=== PATIENT | male | born 1995 | race Asian ===

== ENCOUNTER 2016-11-26 11:57 | Emergency (ER) | payer SELFPAY ==
[2016-11-26 12:48] VITALS: BP 129/70
--- NOTE | 2016-11-26 13:03 | UC ---
Respiratory Complaint HPI - HPI Summary HPI Summary: worsening URI sx and fever over the past 24 hours - History of Current Complaint Chief Complaint: UCGeneralIllness Stated Complaint: COUGH,FEVER Time Seen by Provider: 11/26/16 12:59 Hx Obtained From: Patient Onset/Duration: Sudden Onset, Lasting Days - 1, Still Present Timing: Constant Severity Initially: Moderate Severity Currently: Moderate Pain Intensity: 6 Pain Scale Used: 0-10 Numeric Character: Cough: Nonproductive Aggravating Factors: Nothing Alleviating Factors: OTC Meds Associated Signs And Symptoms: Positive: Fever, Chills, URI, Nasal Congestion, Sinus Discomfort - Allergies/Home Medications Allergies/Adverse Reactions: Allergies Allergy/AdvReac Type Severity Reaction Status Date / Time No Known Allergies Allergy Verified 03/28/16 10:28 PMH/Surg Hx/FS Hx/Imm Hx Previously Healthy: Yes Endocrine History Of: Denies: Diabetes, Thyroid Disease Cardiovascular History Of: Denies: Cardiac Disorders, Hypertension Respiratory History Of: Denies: COPD, Asthma GI/ History Of: Denies: Ulcer - Surgical History Surgical History: Yes Surgery Procedure, Year, and Place: MYRANDA broken leg repair- External fixator. osteomylitis-wound vac - Family History Known Family History: Positive: None, Diabetes - Social History Occupation: Student Lives: With Family Alcohol Use: Weekly Alcohol Amount: Once per week Substance Use Type: None Smoking Status (MU): Never Smoked Tobacco Have You Smoked in the Last Year: No - Immunization History Most Recent Tetanus Shot: UTD Vaccination Up to Date: Yes Review of Systems Constitutional: Fever, Chills, Fatigue Skin: Negative Eyes: Negative ENT: Sore Throat Respiratory: Cough Cardiovascular: Negative Gastrointestinal: Negative Genitourinary: Negative Motor: Negative Neurovascular: Negative Musculoskeletal: Arthralgia, Myalgia Neurological: Negative Psychological: Negative All Other Systems Reviewed And Are Negative: Yes Physical Exam Triage Information Reviewed: Yes Appearance: No Pain Distress, Well-Nourished, Ill-Appearing - mild Vital Signs: Initial Vital Signs Temp 101.1 F 11/26/16 12:41 Pulse 108 11/26/16 12:41 Resp 18 11/26/16 12:41 BP 129/70 11/26/16 12:41 Pulse Ox 97 11/26/16 12:41 Vital Signs Reviewed: Yes Eye Exam: Normal Eyes: Positive: Conjunctiva Clear ENT Exam: Normal ENT: Positive: Normal ENT inspection, Hearing grossly normal, Pharyngeal erythema, TMs normal. Negative: Nasal congestion, Nasal drainage, Tonsillar swelling, Tonsillar exudate, Trismus, Muffled/hoarse voice Dental Exam: Normal Neck exam: Normal Neck: Positive: Supple, Nontender, No Lymphadenopathy Respiratory Exam: Normal Respiratory: Positive: Chest non-tender, Lungs clear, Normal breath sounds, No respiratory distress, No accessory muscle use Cardiovascular Exam: Normal Cardiovascular: Positive: No Murmur, Pulses Normal, Brisk Capillary Refill, Tachycardia Musculoskeletal Exam: Normal Musculoskeletal: Positive: Strength Intact, ROM Intact, No Edema Neurological Exam: Normal Neurological: Positive: Alert, Muscle Tone Normal Psychological Exam: Normal Skin Exam: Normal UC Diagnostic Evaluation - Laboratory O2 Sat by Pulse Oximetry: 97 Diagnostic Studies Comment: Influenza A (+) Respiratory Course/Dx - Course Course Of Treatment: Tamiflu, Ibuprofen, tylenol, increase fluids, follow with [facility] recheck prn - Differential Dx/Diagnosis Differential Diagnosis/HQI/PQRI: Influenza, Laryngitis, Sinusitis Provider Diagnoses: Influenza A Discharge - Discharge Plan Condition: Stable Disposition: HOME Prescriptions: Oseltamivir Phosphate [Tamiflu] 75 mg PO BID #10 cap Patient Education Materials: Oseltamivir (By mouth), Influenza (ED) Forms: *School Release Referrals: [facility] [Outside] - If Needed No Primary Care Phys,NOPCP [Primary Care Provider] -
[2016-11-26] MEDS: Ibuprofen TAB* 600 MG PO ONE (13:16)
== END 2016-11-26 13:38 | disposition home or self-care (01) ==
LOC: UCEAST 11:57
DX: J10.1 Influenza due to other identified influenza virus with other respiratory manifestations (principal)
CPT/HCPCS: 87502; 87651; 99212; A9270-GY; G0463

== ENCOUNTER 2017-08-15 09:05 | Emergency (ER) | payer BC ==
[2017-08-15 09:46] VITALS: BP 127/70
--- NOTE | 2017-08-15 10:36 | UC ---
Respiratory Complaint HPI - HPI Summary HPI Summary: 2 DAYS OF COUGH, CONGESTION, SCRATCHY THROAT. NO EAR PAIN, FEVER, N/V/D. NO PAIN WITH SWALLOWING. NO BODY ACHES. [facility]. - History of Current Complaint Chief Complaint: UCRespiratory Stated Complaint: COUGH RESP ISSUE Time Seen by Provider: 08/15/17 10:11 Hx Obtained From: Patient Onset/Duration: Gradual Onset, Lasting Days, Still Present Timing: Constant Severity Initially: Moderate Severity Currently: Moderate Pain Intensity: 0 Pain Scale Used: 0-10 Numeric Character: Cough: Productive Aggravating Factors: Nothing Alleviating Factors: Nothing Associated Signs And Symptoms: Positive: URI, Nasal Congestion. Negative: Dyspnea, Fever, Chills, Pleuritic Chest Pain, Wheezing, Hemoptysis, Dizziness, Calf Pain, Calf Swelling, Edema, Hoarseness - Allergies/Home Medications Allergies/Adverse Reactions: Allergies Allergy/AdvReac Type Severity Reaction Status Date / Time No Known Allergies Allergy Verified 08/15/17 09:43 PMH/Surg Hx/FS Hx/Imm Hx Previously Healthy: Yes - Surgical History Surgical History: Yes Surgery Procedure, Year, and Place: MYRANDA broken leg repair- External fixator. osteomylitis-wound vac - Family History Known Family History: Positive: Hypertension, Diabetes - Social History Alcohol Use: Weekly Alcohol Amount: Once per week Substance Use Type: None Smoking Status (MU): Never Smoked Tobacco Have You Smoked in the Last Year: No - Immunization History Most Recent Tetanus Shot: UTD Vaccination Up to Date: Yes Review of Systems Constitutional: Negative ENT: Sore Throat, Nasal Discharge Respiratory: Cough Cardiovascular: Negative Gastrointestinal: Negative All Other Systems Reviewed And Are Negative: Yes Physical Exam Triage Information Reviewed: Yes Appearance: Well-Appearing, No Pain Distress, Well-Nourished Vital Signs: Initial Vital Signs Temp 97.8 F 08/15/17 09:43 Pulse 87 08/15/17 09:43 Resp 16 08/15/17 09:43 BP 127/70 08/15/17 09:43 Pulse Ox 100 08/15/17 09:43 Vital Signs Reviewed: Yes Eyes: Positive: Conjunctiva Clear ENT: Positive: Hearing grossly normal, Pharynx normal, TMs normal Neck: Positive: Supple, Nontender, No Lymphadenopathy Respiratory Exam: Normal Cardiovascular Exam: Normal Abdomen Description: Positive: Soft Musculoskeletal: Positive: No Edema Neurological: Positive: Alert Psychological: Positive: Age Appropriate Behavior Skin: Negative: rashes UC Diagnostic Evaluation - Laboratory O2 Sat by Pulse Oximetry: 100 Respiratory Course/Dx - Differential Dx/Diagnosis Provider Diagnoses: ACUTE URI Discharge - Discharge Plan Condition: Stable Disposition: HOME Patient Education Materials: Upper Respiratory Infection (ED) Forms: *School Release Additional Instructions: ACUTE UPPER RESPIRATORY INFECTION The common cold is a benign self-limited syndrome representing a group of diseases caused by members of several families of viruses. It is the most frequent acute illness in the [place] and throughout the industrialized world. The term "common cold" refers to a mild upper respiratory viral infection involving, to variable degrees, nasal congestion and discharge ( rhinorrhea), sneezing, sore throat, cough, low-grade fever, headache, and malaise. Symptomatic therapy remains the mainstay of common cold treatment. In the absence of convincing evidence of a secondary bacterial infection, antibiotics are not effective in the treatment of the common cold and should not be prescribed. Be advised that the usual course and duration of illness is up to one and a half weeks for patients with a cold, but can last slightly longer; symptoms usually persist longer in smokers. YOUR SYMPTOMS ARE LIKELY VIRALLY MEDIATED AND SHOULD RESOLVE ON THEIR OWN WITH TIME. REST, HYDRATE, OTC MEDS NEEDED. SEEK FOLLOW-UP HERE OR WITH [facility] IF YOU ARE NOT IMPROVING OVER THE NEXT 1-2 WEEKS. TRY OTC AFRIN FOR NASAL CONGESTION. OKAY TO USE 2-3 SPRAYS IN EACH NOSTRIL UP TO 2 TIMES DAILY. DO NOT USE FOR MORE THAN 3-4 CONSECUTIVE DAYS TO PREVENT DEVELOPING REBOUND CONGESTION.
== END 2017-08-15 10:49 | disposition home or self-care (01) ==
LOC: UCEAST 09:05
DX: J06.9 Acute upper respiratory infection, unspecified (principal)
CPT/HCPCS: 99211; G0463

== ENCOUNTER 2017-10-09 11:37 | Emergency (ER) | payer BC ==
--- NOTE | 2017-10-09 15:03 | UC ---
Viola Hodge Thomas, scribed for Brandee Gastelum MD on 10/09/17 at 1455 . Throat Pain/Nasal Paulo HPI - HPI Summary HPI Summary: The patient is a 21 year old male presenting to Urgent Care complaining of a sore throat and chills for the last three days. The sore throat is rated 5/10. At urgent care, the patient has a fever at 100.7. Yesterday, the patient took Motrin. Patient additionally complains of generalized malaise. The patient has been able to drink but he has not been eating. Patient denies myalgia, cough, abd pain, nausea, diarrhea, sinus pain, ear pain, and postnasal drip. He is unsure whether or not he got the flu shot this year. He denies recent sick contacts. Patients medication reviewed this visit. - History of Current Complaint Chief Complaint: UCRespiratory Stated Complaint: SORE THROAT Time Seen by Provider: 10/09/17 14:52 Hx Obtained From: Patient Onset/Duration: Lasting Days - 3, Still Present Severity: Moderate Pain Intensity: 5 Pain Scale Used: 0-10 Numeric Cough: None Associated Signs & Symptoms: Positive: Fever, Other - Chills, sore throat, generalized malaise Related History: Other (Noted In Comments) - Unsure whether or not he got the flu shot this year - Allergies/Home Medications Allergies/Adverse Reactions: Allergies Allergy/AdvReac Type Severity Reaction Status Date / Time No Known Allergies Allergy Verified 10/09/17 12:29 PMH/Surg Hx/FS Hx/Imm Hx Previously Healthy: Yes - NEGATIVE: asthma, Type I DM - Surgical History Surgical History: Yes Surgery Procedure, Year, and Place: MYRANDA broken leg repair- External fixator. osteomylitis-wound vac - Family History Known Family History: Positive: Hypertension, Diabetes - Social History Alcohol Use: Weekly Alcohol Amount: Once per week Substance Use Type: None Smoking Status (MU): Never Smoked Tobacco Have You Smoked in the Last Year: No - Immunization History Most Recent Tetanus Shot: UTD Vaccination Up to Date: Yes Review of Systems Constitutional: Fever, Chills, Other - Generalized malaise ENT: Sore Throat Is Patient Immunocompromised?: No All Other Systems Reviewed And Are Negative: Yes Physical Exam Triage Information Reviewed: Yes Appearance: No Pain Distress - tired appearing, congested, Well-Nourished Vital Signs: Initial Vital Signs Temp 100.7 F 10/09/17 12:29 Pulse 104 10/09/17 12:29 Resp 22 10/09/17 12:29 BP 120/75 10/09/17 12:29 Pulse Ox 100 10/09/17 12:29 Vital Signs Reviewed: Yes Eye Exam: Normal Eyes: Positive: Conjunctiva Clear ENT Exam: Normal ENT: Positive: Hearing grossly normal, Pharyngeal erythema, Nasal congestion, Other - fluid left TM no erythema turbinates inflammed and boggy + PND Dental Exam: Normal Neck exam: Normal Neck: Positive: Supple, Nontender Respiratory Exam: Normal Respiratory: Positive: Chest non-tender, Lungs clear, Normal breath sounds, No respiratory distress, No accessory muscle use Cardiovascular Exam: Normal Cardiovascular: Positive: RRR, No Murmur Abdominal Exam: Normal Abdomen Description: Positive: Nontender, No Organomegaly Musculoskeletal Exam: Normal Neurological Exam: Normal Psychological Exam: Normal Skin Exam: Normal Throat Pain/Nasal Course/Dx - Course Assessment/Plan: Patient presents with fever, sore throat, and chills. Rapid Strep is negative. Influenza A and B are negative. He was given acetaminophen 650 mg PO at urgent care. viral syndrome - URI. hydrate. secretion precaution. motrin/apap. flonase. hydr - Differential Dx/Diagnosis Provider Diagnoses: URI. viral syndrome Discharge - Discharge Plan Condition: Stable Disposition: HOME Prescriptions: Fluticasone NASAL SPRAY 50MCG* [Flonase NASAL SPRAY 50MCG*] 2 spray BOTH NARES DAILY #1 btl Patient Education Materials: Pharyngitis (ED), Viral Syndrome (ED) Forms: *Gen. Provider Communication, *Work Release Referrals: No Primary Care Phys,NOPCP [Primary Care Provider] - Additional Instructions: - Stay well hydrated. Drink plenty of non-alcoholic, non-caffinated beverages - alternate ibuprofen (Advil, Motrin) and tylenol every 3hours for pain and fever - Okay to gargle and spit every 4 hours as needed for pain - Stay well hydrated - frequent sips of cold fluids will be soothing to your throat (popsicles, jello, ice cream, ice water). Avoid excess caffeine until your symptoms have resolved. - Do not share eating, drinking utensils. Throw out your toothbrush when your symptoms resolved - Use nasal spray and instructed - Contact your doctor to arrange a follow-up appointment. Contact your doctor, return here or go to the emergency department as needed The documentation as recorded by the Viola castaneda Thomas accurately reflects the service I personally performed and the decisions made by me, Brandee Gastelum MD.
[2017-10-09 15:10] VITALS: BP 101/70
[2017-10-09] MEDS: Acetaminophen TAB* 325 MG PO ONE (15:13)
== END 2017-10-09 16:16 | disposition home or self-care (01) ==
LOC: UCEAST 11:37
DX: J06.9 Acute upper respiratory infection, unspecified (principal); B34.9 Viral infection, unspecified
CPT/HCPCS: 87502; 87651; 99212; A9270-GY; G0463

== ENCOUNTER → 2018-08-23 01:28 | Emergency (ER) | payer SELFPAY ==
[~2018-08-23 01:28] MED LIST: Amoxicillin/Clavulanate TAB* 875 MG PO ONE
--- NOTE | 2018-08-23 02:37 | ED ---
Throat Pain/Nasal Congestion - HPI Summary HPI Summary: The pt is a 22 y/o male presenting to [facility] c/o tonsilar bleeding since 0000 hrs. He went to bed at 23:00hrs. He was awoken by a warm sensation in his throat at 0000 hrs revealing the bleeding that continued for 30-40 minutes. He notes lightheadedness, posterior throat erythema, mild cough, and nausea but denies sore throat, dysphagia, fever, chills, diarrhea, vomiting, and epistaxis. He did not eat any new food recently. - History of Current Complaint Chief Complaint: EDThroatPain Time Seen by Provider: 08/23/18 02:32 Hx Obtained From: Patient Onset/Duration: Sudden Onset - 0000 hrs, Still Present Severity: Moderate Associated Signs And Symptoms: Negative: Dysphagia Related History: Other (Noted In Comments) - Hx of strep throat - Allergies/Home Medications Allergies/Adverse Reactions: Allergies Allergy/AdvReac Type Severity Reaction Status Date / Time No Known Allergies Allergy Verified 08/23/18 01:38 PMH/Surg Hx/FS Hx/Imm Hx Previously Healthy: No Endocrine/Hematology History: Denies: Hx Diabetes, Hx Thyroid Disease Cardiovascular History: Denies: Hx Hypertension Respiratory History: Denies: Hx Asthma, Hx Chronic Obstructive Pulmonary Disease (COPD) GI History: Denies: Hx Ulcer EENT History: Reports: Other - Strep throat - Cancer History Cancer Type, Location and Year: None reported - Surgical History Surgery Procedure, Year, and Place: MYRANDA broken leg repair- External fixator. osteomylitis-wound vac Infectious Disease History: No Infectious Disease History: Denies: Hx Clostridium Difficile, Hx Hepatitis, Hx Human Immunodeficiency Virus (HIV), Hx of Known/Suspected MRSA, Hx Shingles, Hx Tuberculosis, Hx Known/ Suspected VRE, Hx Known/Suspected VRSA, History Other Infectious Disease, Traveled Outside the [place] in Last 30 Days - Family History Known Family History: Positive: Hypertension, Diabetes - Social History Occupation: Student Lives: With Family Alcohol Use: Weekly Alcohol Amount: Once per week Substance Use Type: Reports: None Smoking Status (MU): Never Smoked Tobacco Have You Smoked in the Last Year: No Review of Systems Constitutional: Other - Positive: Lightheadedness ENT: Negative - Dysphagia , Other - Positive: Tonsilar bleeding, posterior throat ertythema Negative: Epistaxis, Sore Throat Positive: Cough Positive: Nausea. Negative: Vomiting, Diarrhea All Other Systems Reviewed And Are Negative: Yes Physical Exam - Summary Physical Exam Summary: GENERAL: Patient is a well developed and nourished M who is lying comfortable in the stretcher. Patient is not in any acute respiratory distress. HEAD AND FACE: Normocephalic EYES: PERRLA, EOMI x 2. EARS: Hearing grossly intact. MOUTH: Small laceration on the L tonsil without active bleeding NECK: Supple, trachea is midline, no adenopathy, no JVD, no carotid bruit. CHEST: Symmetric, no tenderness at palpation LUNGS: Clear to auscultation bilaterally. No wheezing or crackles. CVS: Regular rate and rhythm, S1 and S2 present, no murmurs or gallops appreciated. ABDOMEN: Soft, non-tender. Bowel sounds are normal. No abdominal abnormal pulsations. EXTREMITIES: Full ROM in all major joints, no edema, no cyanosis or clubbing. NEURO: Alert and oriented x 3. No acute neurological deficits. Speech is normal and follows commands. SKIN: Dry and warm Triage Information Reviewed: Yes Vital Signs On Initial Exam: Initial Vitals Temp Pulse Resp BP Pulse Ox 97.1 F 96 16 116/73 98 08/23/18 01:36 08/23/18 01:36 08/23/18 01:36 08/23/18 01:36 08/23/18 01:36 Vital Signs Reviewed: Yes Diagnostics - Vital Signs Vital Signs Temp Pulse Resp BP Pulse Ox 08/23/18 01:36 97.1 F 96 16 116/73 98 - Laboratory Lab Statement: Any lab studies that have been ordered have been reviewed, and results considered in the medical decision making process. - Radiology CXR Radiology Interpretation Completed By: ED Physician - IMPRESSION: No acute process EENT Course/Dx - Course Course Of Treatment: A 22 year-old M presents to the ED with a CC of tonsillar bleeding since 0000 hrs. He went to bed at 23:00hrs. He was awoken by a warm sensation in his throat at 0000 hrs revealing the oral bloody discharge that continued for 30-40 minutes. He notes lightheadedness, posterior throat erythema , mild cough, and nausea but denies sore throat, dysphagia, fever, chills, diarrhea, vomiting, and epistaxis. A physical exam revealed a small laceration on the L tonsil without active bleeding. A CXR is unremarkable. In the ED course , pt was given Amoxicillin 875 mg PO which improved the symptoms. Patient will be discharged with a final Dx of strep throat. I discussed results with patient and he agrees with this plan. He is hemodynamically stable upon discharge. Strict return precautions given and he will otherwise follow up with his PCP. Allergies noted. - Diagnoses Provider Diagnoses: Strep throat Discharge - Sign-Out/Discharge Documenting (check all that apply): Patient Departure - DC - Discharge Plan Condition: Stable Disposition: HOME Prescriptions: Amoxicillin/Clavulanate TAB* [Augmentin TAB 875*] 875 mg PO BID #20 tab Patient Education Materials: Strep Throat (ED) Referrals: [facility] [Outside] Additional Instructions: Follow up with PCP in 1-3 days. Return to ED for any new or worsening symptoms - Billing Disposition and Condition Condition: STABLE Disposition: Home - Attestation Statements Document Initiated by Scribe: Yes Documenting Scribe: Gissel Deluna Provider For Whom Teresa is Documenting (Include Credential): Dr. Christian Haque MD Scribe Attestation: Gissel Hodge , scribed for Dr. Christian Haque MD on 08/23/18 at 0547. Scribe Documentation Reviewed: Yes Provider Attestation: The documentation as recorded by the Gissel castaneda accurately reflects the service I personally performed and the decisions made by , Dr. Christian Haque MD
[2018-08-23 03:50] VITALS: BP 111/81
--- NOTE | 2018-08-23 08:08 | RAD ---
HISTORY: hemoptysis COMPARISONS: September 26, 2003 VIEWS: 4: Frontal dual-energy and lateral views of the chest. FINDINGS: CARDIOMEDIASTINAL SILHOUETTE: The cardiomediastinal silhouette is normal. TOI: The toi are normal. PLEURA: The costophrenic angles are sharp. No pleural abnormalities are noted. LUNG PARENCHYMA: The lungs are clear. ABDOMEN: The upper abdomen is clear. There is no subphrenic gas. BONES AND SOFT TISSUES: No bone or soft tissue abnormalities are noted. OTHER: None. IMPRESSION: NO ACTIVE CARDIOPULMONARY DISEASE. [id number]
== END | disposition home or self-care (01) ==
LOC: ED 01:28
DX: J02.0 Streptococcal pharyngitis (principal); R42 Dizziness and giddiness; R04.2 Hemoptysis
CPT/HCPCS: 71046; 87651; 99282; A9270-GY